=== PATIENT | female | born 1975 | race Two or more races ===

== ENCOUNTER 2021-09-10 16:13 | Emergency (ER) | payer OTHER ==
[~2021-09-10] VITALS: Ht 160 cm; Wt 70.3 kg
== END 2021-09-10 19:31 | disposition home or self-care (01) ==
LOC: ER 16:13
DX: S89.92XA Unspecified injury of left lower leg, initial encounter (principal); X58.XXXA Exposure to other specified factors, initial encounter; Y93.9 Activity, unspecified; Y92.9 Unspecified place or not applicable; Y99.9 Unspecified external cause status